=== PATIENT | female | born 1950 | race Caucasian/White ===

== ENCOUNTER 2019-11-26 08:17 | Inpatient (IN) | payer OTHER ==
[~2019-11-26] VITALS: Ht 167.6 cm; Wt 68.0 kg
[2019-11-26 08:19] VITALS: BP 124/76
[2019-11-26] MEDS ORDERED: BACLOFEN 10MG T10 MG PO (08:42)
[2019-11-26] MEDS ORDERED: FLEXERIL PO (08:43)
[2019-11-26] MEDS ORDERED: ZOFRAN4 MG PO (08:44)
[2019-11-26] MEDS ORDERED: COZAAR 25 MG TA25 M1 PO (08:44)
[2019-11-26] MEDS ORDERED: CHLORTHALIDONE25 MG PO (08:44)
[2019-11-26] MEDS ORDERED: XANAX 0.5 MG0.5 MG PO (08:45)
[2019-11-26 10:29] LABS: BASOPHILS 0.3 % (0.0-2.0); EOSINOPHILS 1.6 % (0.0-3.0); HEMATOCRIT 42.4 % (37.0-47.0); HEMOGLOBIN 14.9 gm/dL (12.0-15.0); LYMPHOCYTES 11.5 % (24.0-44.0); MCH 33.1 pg (26.0-34.0); MCHC 35.2 g/dL (28.0-37.0); MONOCYTES 9.9 % (1.0-8.0); PLATELET COUNT 310 thou/uL (150-400); POLYS 76.7 % (36.0-66.0); RBC 4.51 mil/uL (4.20-5.00); RDW 13.4 % (10.5-14.5); WBC 9.2 thou/uL (4.0-11.0)
[2019-11-26 10:39] LABS: CALCIUM 9.4 mg/dL (8.5-10.1)
[2019-11-26 10:42] LABS: POTASSIUM 2.2 mmol/L (3.5-5.1)
[2019-11-26 15:38] VITALS: BP 129/75
[2019-11-26 17:00] VITALS: BP 130/82
[2019-11-26 19:44] VITALS: BP 107/61
[2019-11-27 00:59] LABS: URINE BILIRUBIN NEGATIVE (Negative); URINE BLOOD NEGATIVE (Negative); URINE CLARITY CLEAR; URINE COLOR YELLOW; URINE GLUCOSE-RANDOM* NEGATIVE (Negative); URINE KETONES NEGATIVE (Negative); URINE LEUKOCYTES-REFLEX TRACE (Negative); URINE NITRITE-REFLEX NEGATIVE (Negative); URINE PROTEIN (DIPSTICK) NEGATIVE (Negative); URINE UROBILINOGEN 0.2 E.U./dl (0.2-1.0)
[2019-11-27 04:59] VITALS: BP 145/85
[2019-11-27 06:00] LABS: CALCIUM 8.5 mg/dL (8.5-10.1); CREATININE 0.9 mg/dL (0.6-1.0)
[2019-11-27 06:03] LABS: POTASSIUM 3.3 mmol/L (3.5-5.1)
[2019-11-27 08:15] VITALS: BP 140/88
[2019-11-27 14:45] VITALS: BP 140/88
[2019-11-27 15:30] VITALS: BP 142/76
[2019-11-27 19:07] VITALS: BP 149/96
[2019-11-28 03:46] VITALS: BP 155/91
[2019-11-28 05:19] LABS: CALCIUM 8.5 mg/dL (8.5-10.1); CREATININE 0.9 mg/dL (0.6-1.0)
[2019-11-28 05:54] LABS: POTASSIUM 4.3 mmol/L (3.5-5.1)
[2019-11-28 08:44] VITALS: BP 154/85
[2019-11-28] MEDS ORDERED: HYDROCODON-ACE1 EAC7 PO ×2 (08:48→17:25)
[2019-11-28] MEDS ORDERED: CYCLOBENZAPRINE5 MG PO (08:48)
== END 2019-11-28 16:28 | disposition home health service (06) | DRG 206 ==
LOC: ER 08:17 → 4S 10:59 → EROBS 10:59 → 4S 16:30
PROVIDERS: Emergency Medicine; ADMIT Hospitalist; ATTEND Hospitalist
DX: S22.32XA Fracture of one rib, left side, initial encounter for closed fracture (principal); E87.1 Hypo-osmolality and hyponatremia; I10 Essential (primary) hypertension; E87.6 Hypokalemia; M19.90 Unspecified osteoarthritis, unspecified site; G47.00 Insomnia, unspecified; Z88.8 Allergy status to other drugs, medicaments and biological substances
CPT/HCPCS: 10100; 10102

== ENCOUNTER → 2020-01-23 | Outpatient (CLI) | payer OTHER ==
[~2020-01-23] MED LIST: ALIGN4 MG PO; BACLOFEN 10MG T10 MG PO; CHLORTHALIDONE25 MG PO; COZAAR100 MG PO; CYCLOBENZAPRINE5 MG PO; FLEXERIL PO; HYDROCODON-ACE1 EAC7 PO; MELATONIN1 M2 PO; NORVASC 2.5 MG2.5 M1 PO; XANAX 0.5 MG0.5 MG PO; ZOFRAN4 MG PO
== END ==
LOC: LAB 01-22 08:52
PROVIDERS: ATTEND Student in an Organized Health Care Education/Training Program
DX: Z01.818 Encounter for other preprocedural examination (principal); Z11.59 Encounter for screening for other viral diseases

== ENCOUNTER 2020-01-27 08:23 | Observation (INO) | payer OTHER ==
[2020-01-20 13:41] LABS: HEMATOCRIT 44.1 % (37.0-47.0); HEMOGLOBIN 14.9 gm/dL (12.0-15.0); MCH 32.6 pg (26.0-34.0); MCHC 33.9 g/dL (28.0-37.0); MCV 96.2 fL (80.0-100.0); RBC 4.59 mil/uL (4.20-5.00); RDW 17.7 % (10.5-14.5); WBC 7.5 thou/uL (4.0-11.0)
[2020-01-20 13:54] LABS: URINE BILIRUBIN NEGATIVE (Negative); URINE BLOOD TRACE (Negative); URINE CLARITY CLEAR; URINE COLOR YELLOW; URINE GLUCOSE-RANDOM* NEGATIVE (Negative); URINE KETONES NEGATIVE (Negative); URINE LEUKOCYTES-REFLEX TRACE (Negative); URINE NITRITE-REFLEX NEGATIVE (Negative); URINE PROTEIN (DIPSTICK) NEGATIVE (Negative); URINE UROBILINOGEN 0.2 E.U./dl (0.2-1.0)
[2020-01-20 13:56] LABS: PROTIME 10.7 Seconds (9.3-11.4)
[2020-01-20 13:57] LABS: ALBUMIN 3.8 g/dL (3.4-5.0); CALCIUM 9.3 mg/dL (8.5-10.1); CREATININE 0.9 mg/dL (0.6-1.0); POTASSIUM 5.3 mmol/L (3.5-5.1)
--- NOTE | 2020-01-20 16:08 | EKG ---
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
[~2020-01-27] VITALS: Ht 167.6 cm; Wt 66.2 kg
--- NOTE | ~2020-01-27 | O ---
[facility] [place] [address] OPERATIVE REPORT Name: DAGOBERTO SALAS Room #: 150-6 ADM IN M.R.#: [id number] Admission: 01/27/20 Attend Phys: Richard Castillo MD Discharge: Date of : 48 Report #: [id number] THIS REPORT FOR: cc: FAM - Family physician unknown FAM - Family physician unknown Richard Castillo MD ~ CC: [facility] unknown Richard Castillo DATE OF SERVICE: 01/27/2020 PREOPERATIVE DIAGNOSIS: Left knee osteoarthritis. POSTOPERATIVE DIAGNOSIS: Left knee osteoarthritis. PROCEDURE: Left total knee arthroplasty using Navio robotic assistance. SURGEON: Richard Castillo MD NANOTECHNOLOGIST: Carol Ann Stout PA-C ANESTHESIA: LMA with an adductor canal block. INDICATIONS FOR NANOTECHNOLOGIST: Throughout the case, extensive retraction and manipulation of the knee was required, this was afforded to me by my legal executive assistant. IMPLANTS: [employer] size 5 Journey II BCS cobalt chrome femur, size 3 tibia, size 32 patella and a 9 constrained polyethylene. TOURNIQUET TIME: 50 minutes. ESTIMATED BLOOD LOSS: 25 mL. COMPLICATIONS: None. SPECIMENS: None. CONDITION UPON LEAVING THE OPERATING ROOM: Stable. INDICATIONS FOR PROCEDURE: The patient is a 69-year-old female with left knee osteoarthritis. She had failed conservative measures for this and after discussion with her, she elected for left total knee arthroplasty. DESCRIPTION OF PROCEDURE: Risks, benefits, alternatives, and complications were discussed in detail with the patient including but not limited to risk of [facility] [address] [place] [address] OPERATIVE REPORT Name: DAGOBERTO SALAS Room #: 150-6 ADM IN M.R.#: [id number] Admission: 01/27/20 Attend Phys: Richard Castillo MD Discharge: Date of : 48 Report #: [id number] anesthesia, risk of damage to nerves, arteries, blood vessels, risk for infection, bleeding, risk for continued knee pain, need for reoperation. Informed consent was obtained from the patient. Left knee was appropriately marked in the preoperative holding area. Adductor canal block was placed by Anesthesia. IV Ancef was given for preoperative antibiotics. She was brought to the operating room and placed in the supine position on the operating room table. LMA anesthesia was induced without complication. Tourniquet was placed on the left thigh. Left lower extremity was prepped and draped in normal sterile fashion. Timeout was performed properly identifying the patient and procedure as well as the instrumentation and implants. All in the operating room were in agreement. Left lower extremity was exsanguinated, tourniquet was inflated. Tourniquet time was 50 minutes. Standard midline approach to the knee was made with #10-blade through the skin. Dissection was taken down sharply to the fascia and deep flaps were developed medially and laterally. First, a #10-blade was used to make a medial parapatellar arthrotomy and the knee was inspected. There was [id number] tricompartmental osteoarthritis. ACL and PCL were removed sharply. Reference pins were placed in the femur and the tibia. The knee was then digitally mapped using the Viigo robotic system. Intraoperative plan was made. We sized the size 5 femur with a size 3 tibia, a 10 spacer after acceptance of the intraoperative plan, the distal femoral cut was made. The distal femoral cutting block was pinned in place and chamfer cuts were made. Attention was then turned to the tibia. Remainder of the menisci removed with Bovie cautery. Tibial resection guide was pinned in place using the Navio for placement and tibial resection was made. Flexion and extension gaps were then checked and found to have good balance in flexion and extension both medially and laterally. The tibia was sized, found to be a size 3. Size 3 tibial trial was placed, pinned and punched. A size 5 femoral trial was placed and the box cut was made. This was then trialed with a size 9 polyethylene. Knee was taken through range of motion, found to have good balance in flexion and extension and deep flexion, there was some moderate laxity laterally and felt to make up for this with a constrained polyethylene 9 mm was resected from the posterior surface of the patella and a size 32 patellar trial button was placed. Knee was taken through range of motion, found to be stable, found to have good patellar tracking. Trial components were removed. Bony ends were thoroughly irrigated with normal saline and final size 3 tibia, size 5 Journey II BCS cobalt chrome femur, a size 32 patella were cemented in place using standard cementation techniques. While the cement cured, a periarticular injection consisting of morphine, ropivacaine, epinephrine and Toradol was placed around the knee joint capsule. After the cement cured, the tourniquet was deflated. Hemostasis was obtained with Bovie cautery. Final size 9 polyethylene was placed. A gram of vancomycin was placed deep in the joint. The fascia was closed with 0 Vicryl, skin was closed with 2-0 Vicryl and 3-0 Monocryl. Dermabond and a SARAH dressing was applied. The patient tolerated [address] [address] OPERATIVE REPORT Name: DAGOBERTO SALAS Room #: 150-6 [facility] IN M.R.#: [id number] Admission: 01/27/20 Attend Phys: Richard Castillo MD Discharge: Date of : 48 Report #: [id number] this procedure well and went to recovery room under care of anesthesia postoperatively. By: 1209 [id number] Richard Castillo MD /nt
[2020-01-27 09:11] VITALS: BP 129/84
--- NOTE | 2020-01-27 18:53 | NUR ---
PATIENT ADMITTED FROM OR WITH LEFT TOTAL KNEE, SARAH DRESSING AND KNEE HIGH SWETHA HOSE, SCD'S, POLAR PACK IN PLACE. PATIENT C/O NAUSEA, ZOFRAN 4 MG GIVEN DURING ADMISSION.
[2020-01-27 20:10] VITALS: BP 133/84
[2020-01-27 20:30] VITALS: BP 117/70
[2020-01-28 03:40] VITALS: BP 117/70
--- NOTE | 2020-01-28 05:35 | NUR ---
Assumed pt care at 1900. A/OX4,VSS. C/o pain to left knee LOP 10 medicated with [place] with relief reported;polar pack in place too. Kraig hose/SCDs in place to BLE. SARAH dsg in place C/D/I. Up with AX1,RW/GB to BSC,voiding w/o any problems noted. IVF infusing w/o problems via Right wrist. Fall precautions in place,calls approp for help. Resting w/o distress eyes closed,will continue to monitor pt.
[2020-01-28 06:13] LABS: HEMATOCRIT 39.8 % (37.0-47.0); HEMOGLOBIN 13.1 gm/dL (12.0-15.0); MCH 32.7 pg (26.0-34.0); MCHC 32.9 g/dL (28.0-37.0); MCV 99.6 fL (80.0-100.0); RBC 3.99 mil/uL (4.20-5.00); RDW 18.3 % (10.5-14.5); WBC 7.8 thou/uL (4.0-11.0)
--- NOTE | 2020-01-28 09:11 | NUR ---
ASSESSMENT: CM REVIEWED CHART AND SPOKE WITH PATIENT. PT IS ALERT AN DORIENTED X4. PT IS HERE DUE LEFT TKR. PT REPORTS THAT SHE LIVES IN ALONE. PT REPORTS THAT SHE HAS HAD [facility] IN THE PAST BUT DOES NOT HAVE THEM CURRENTLY. PT REPORTS THAT SHE HAS MOVED HER BEDROOM TO THE MAIN LEVEL SO SHE WILL NOT HAVE TO USE STEPS. PT REPORTS SHE HAS A CANE, WALKER, SHOWER CHAIR, AND GRAB IT AT HOME. PT REPORTS SHE HAS OUTPATIENT THEARPY ALREADY ARRANGED AT [place] STARTING ON SUNDAY. PT REPORTS SHE HAS ALSO HIRED [facility] TO HELP HER OUT AND TAKE HER TO APPOINTMENTS/ERRANDS/CHORES. PT REPORTS SHE DOES NOT ANTICIPATE HAVING ANY NEEDS FROM CM. PT WILL WORK WITH THERAPY AND PLANS OF DISCHARGING WITH OUTPATIENT THERAPY. CM WILL CONTINUE TO FOLLOW.
[2020-01-28 12:46] VITALS: BP 131/79
--- NOTE | 2020-01-28 12:48 | NUR ---
DC ORDERS RECIEVED. IV REMOVED FROM R HAND. DC INSTRUCTTIONS AND F/U APPOINTMENT REVIEWED WITH PT. SISTER WILL MANAGER OB PT AT MAIN ENTRANCE.
== END 2020-01-28 13:50 | disposition home or self-care (01) ==
LOC: TBA 08:23 → 4S 08:23 → PRE 09:38 → 4S 15:10
PROVIDERS: ADMIT Orthopaedic Surgery; ATTEND Orthopaedic Surgery
DX: M17.12 Unilateral primary osteoarthritis, left knee (principal); E87.6 Hypokalemia; E87.1 Hypo-osmolality and hyponatremia
CPT/HCPCS: 10102; 50010; 50101; 50415; 50954; 51130; 51225; 51320; 52001; 52282; 53000; 53078; 54118; 56527; 56528; 57095; 57103; 57110; 57127; 57179; 58239; 62110; 62900; 70005